=== PATIENT | female | born 1955 | race Caucasian/White ===

== ENCOUNTER → 2016-08-15 | Outpatient (CLI) | payer BC ==
[~2016-08-15] MED LIST: ASPI-557 PO; ATOR40TA64 PO; CALC-52 PO; CALMOSEPTINE OINTMENT 3.5 G PACKET TOP ONE; FLUT9.9S NAS; GLUC1CAP39 PO; GUAI600T PO; HYDR25TA PO; LISI-621 PO; MULT-1198; OMEP40CA52 PO; [UNRECOGNIZED DRUG - CODE] PO
== END ==
LOC: NWCC 07:48
PROVIDERS: ATTEND Surgery
DX: I87.2 Venous insufficiency (chronic) (peripheral) (principal); L97.822 Non-pressure chronic ulcer of other part of left lower leg with fat layer exposed; L97.812 Non-pressure chronic ulcer of other part of right lower leg with fat layer exposed; R60.1 Generalized edema; I10 Essential (primary) hypertension; Z80.8 Family history of malignant neoplasm of other organs or systems; Z83.3 Family history of diabetes mellitus; I89.0 Lymphedema, not elsewhere classified; E66.9 Obesity, unspecified; Z68.43 Body mass index [BMI] 50.0-59.9, adult; L53.9 Erythematous condition, unspecified; I50.9 Heart failure, unspecified
CPT/HCPCS: 11042; 11045; 29581

== ENCOUNTER → 2016-08-22 | Outpatient (CLI) | payer BC ==
[~2016-08-22] MED LIST changes: -CALMOSEPTINE OINTMENT 3.5 G PACKET TOP ONE
== END ==
LOC: NWCC 09:27
PROVIDERS: ATTEND Surgery
DX: I87.2 Venous insufficiency (chronic) (peripheral) (principal); L97.822 Non-pressure chronic ulcer of other part of left lower leg with fat layer exposed; L97.812 Non-pressure chronic ulcer of other part of right lower leg with fat layer exposed; R60.1 Generalized edema; I50.9 Heart failure, unspecified
CPT/HCPCS: 29581

== ENCOUNTER → 2016-08-29 | Outpatient (CLI) | payer BC | LOC: NWCC 09:20 | PROVIDERS: ATTEND Surgery | DX: I87.2 Venous insufficiency (chronic) (peripheral) (principal); L97.821 Non-pressure chronic ulcer of other part of left lower leg limited to breakdown of skin; L97.811 Non-pressure chronic ulcer of other part of right lower leg limited to breakdown of skin; R60.1 Generalized edema ==